=== PATIENT | female | born 1935 | race Caucasian/White ===

== ENCOUNTER 2017-10-16 19:43 | Observation (INO) | payer MEDICARE, OTHER ==
[~2017-10-16] VITALS: Ht 172.7 cm; Wt 98.0 kg
[~2017-10-16 19:43] MED LIST: ADVI200C9 PO; AMLO5TAB96 PO; ATOR20TA42 PO; LASI20TA PO; LEVO125T48 PO; LISI40TA PO; LORA10TA7 PO; OMEP20CA5 PO; PROZ20CA11 PO
[2017-10-16 19:54] VITALS: BP 146/65; PULSE 72; RESP 16; TEMP 98.2; O2SAT 97
[2017-10-16] MEDS ORDERED: SODIUM CHLOR 0.9% 1000 ML INJ 1,000 ML IV ONE (20:15)
[2017-10-16] MEDS ORDERED: PRIL20TA2 PO (20:19)
[2017-10-16] MEDS ORDERED: LIPI10TA PO (20:19)
[2017-10-16] MEDS ORDERED: LEVO125T4 PO (20:19)
[2017-10-16] MEDS ORDERED: APIX5TAB PO (20:19)
[2017-10-16] MEDS ORDERED: AMLO5 PO (20:19)
[2017-10-16] MEDS ORDERED: LISI40TA PO (20:19)
[2017-10-16 20:20] LABS: AUTOMATED NEUTROPHIL # 7.4 TH/MM3 (1.8-7.7); BASOPHIL # 0.1 TH/MM3 (0-0.2); BASOPHIL % 1.2 % (0.0-2.0); EOSINOPHIL # 0.2 TH/MM3 (0-0.4); EOSINOPHIL % 1.7 % (0.0-4.0); HEMATOCRIT 34.9 % (35.0-46.0); LYMPH % 25.5 % (9.0-44.0); LYMPHOCYTE # 2.9 TH/MM3 (1.0-4.8); MEAN CELL VOLUME 76.8 FL (80.0-100.0); MEAN CORPUSCULAR HEMOGLOBIN 24.2 PG (27.0-34.0); MEAN CORPUSCULAR HGB CONC 31.5 % (32.0-36.0); MEAN PLATELET VOLUME 7.2 FL (7.0-11.0); MONO % 7.6 % (0.0-8.0); MONOCYTE # 0.9 TH/MM3 (0-0.9); PLATELET COUNT 369 TH/MM3 (150-450); RED BLOOD COUNT 4.54 MIL/MM3 (4.00-5.30); RED CELL DISTRIBUTION WIDTH 15.5 % (11.6-17.2); WHITE BLOOD COUNT 11.6 TH/MM3 (4.0-11.0)
[2017-10-16 20:23] VITALS: BP_SYST 122; BP_SYST 139; BP_SYST 150; BP_DIAS 66; BP_DIAS 68; BP_DIAS 70; RESP 16
--- NOTE | 2017-10-16 20:25 | RADRPT ---
EXAM DATE/TIME: 10/16/2017 20:11 [facility] COMPARISON: No previous studies available for comparison. INDICATIONS : Syncopal episode. RADIATION DOSE: 34.70 CTDIvol (mGy) MEDICAL HISTORY : Hypertension. SURGICAL HISTORY : None. ENCOUNTER: Initial ACUITY: 1 day PAIN SCALE: 0/10 LOCATION: cranial TECHNIQUE: Multiple contiguous axial images were obtained of the head. Using automated exposure control and adj ustment of the mA and/or kV according to patient size, radiation dose was kept as low as reasonably a chievable to obtain optimal diagnostic quality images. DICOM format image data is available electro nically for review and comparison. FINDINGS: CEREBRUM: The ventricles are normal for age. No evidence of midline shift, mass lesion, hemorrhage or acute in farction. No extra-axial fluid collections are seen. POSTERIOR FOSSA: The cerebellum and brainstem are intact. The 4th ventricle is midline. The cerebellopontine angle i s unremarkable. EXTRACRANIAL: The visualized portion of the orbits is intact. SKULL: The calvaria is intact. No evidence of skull fracture. CONCLUSION: 1. No acute intracranial abnormalities. Truong Archibald MD on October 16, 2017 at 20:22 Board Certified Radiologist. This report was verified electronically.
[2017-10-16 20:36] LABS: PROTHROMBIN TIME - PATIENT 10.1 SEC (9.8-11.6)
[2017-10-16 21:00] VITALS: BP 139/91; PULSE 80; RESP 16; O2SAT 97
[2017-10-16 21:04] LABS: ALBUMIN 3.5 GM/DL (3.4-5.0); ALKALINE PHOSPHATASE 79 U/L (45-117); ALT (GPT) 24 U/L (10-53); AST (GOT) 44 U/L (15-37); BICARBONATE 22.4 MEQ/L (21.0-32.0); BLOOD UREA NITROGEN 20 MG/DL (7-18); CALCIUM 8.3 MG/DL (8.5-10.1); CHLORIDE 104 MEQ/L (98-107); CREATININE 1.17 MG/DL (0.50-1.00); GLOMERULAR FILTRATION RATE 45 ML/MIN (>89); GLUCOSE,RANDOM 105 MG/DL (74-106); LIPASE 63 U/L (73-393); SODIUM (NA) 134 MEQ/L (136-145); TOTAL BILIRUBIN ADULT 0.3 MG/DL (0.2-1.0); TOTAL PROTEIN 7.2 GM/DL (6.4-8.2); TROPONIN I LESS THAN 0.02 NG/ML (0.02-0.05)
--- NOTE | 2017-10-16 21:17 | RADRPT ---
EXAM DATE/TIME: 10/16/2017 20:48 [facility] COMPARISON: No previous studies available for comparison. INDICATIONS : Syncope. Shortness of breath. MEDICAL HISTORY : Hypertension. SURGICAL HISTORY : None. ENCOUNTER: Initial ACUITY: 2 days PAIN SCORE: 0/10 LOCATION: Bilateral chest FINDINGS: A single view of the chest demonstrates the lungs to be symmetrically aerated without evidence of mas s, infiltrate or effusion. Mild dependent atelectasis. Heart size mildly enlarged. CONCLUSION: 1. Minimal dependent atelectasis in the lungs. No effusion or pneumothorax. Truong Archibald MD on October 16, 2017 at 21:13 Board Certified Radiologist. This report was verified electronically.
--- NOTE | 2017-10-16 21:39 | PD ---
HPI Chief Complaint: Syncope/Near-Syncope Time Seen by Provider: 19:46 Travel History International Travel<30 days: No Contact w/Intl Traveler<30days: No Traveled to known affect area: No History of Present Illness HPI 82-year-old female that presents to the ED for evaluation of syncope. Patient had a syncopal episode while sitting. Per patient she has a history of "supposedly A. fib ". Per patient she's actually never been found to have A. fib but she has been worked up for it with negative results. Per patient today she was playing "bridge" with her friends and she was sitting had an episode where she started feeling like she had hot flashes and then she had a syncopal episode. Per bystanders apparently patient was somewhat unresponsive and when ambulance showed up she had an episode where she cannot perked up. Patient was given some fluids and was found to be severely hypotensive and then came back to it. She is now more to baseline but she continues to be dizzy with standing. She states that she feels weak. Per patient she's had worked up for her A. fib recently and had multiple times by Dr. Richards as well as her research and development researcher. Do not be noted. I want she is having. Per ambulance she had episodes of bradycardia whenever she was symptomatic. She does take blood pressure medications and amlodipine. She denies any chest pain or shortness of breath. She denies any urinary or bowel movement issues. Per patient and her doctor told her yesterday to her hemoglobin had dropped to 10.1 and they were concerned that maybe she was bleeding. She denies any changes in her stool or bowel movement. She denies any abdominal pain. She did have an episode of "volatile vomit" when she return to baseline. Given 4 mg of Zofran per EVAC. PFSH Past Medical History Arthritis: Yes Blood Disorders: No Cancer: No Cardiovascular Problems: Yes High Cholesterol: Yes Diabetes: No Endocrine: Yes Gastrointestinal Disorders: Yes GERD: Yes Genitourinary: No Hiatal Hernia: Yes (POSSIBLE) Hypertension: Yes Immune Disorder: No Implanted Vascular Access Dvce: Yes Musculoskeletal: Yes Neurologic: Yes Psychiatric: No Reproductive: No Respiratory: Yes Thyroid Disease: Yes (HYPO) Ulcer: Yes (HX) Tetanus Vaccination: Unknown Influenza Vaccination: Yes Past Surgical History Body Medical Devices: CAMERON EYE LENS Eye Surgery: Yes (CAMERON CATARACT SX ) Oral Surgery: Yes (T&A AGE 20 ) Tonsillectomy: Yes Social History Alcohol Use: Yes (WINE ) Tobacco Use: No (STOPPED 1989) Substance Use: No Allergies-Medications (Allergen,Severity, Reaction): Coded Allergies: hydrochlorothiazide (Unverified Allergy, Unknown, MUSCLE CRAMPING, 10/16/17 ) Uncoded Allergies: ADALAT (Adverse Reaction, Intermediate, Headache, 09/30/10) Reported Meds & Prescriptions Reported Meds & Active Scripts Active Reported Eliquis (Apixaban) 5 Mg Tab 5 Mg PO BID Prilosec (Omeprazole Magnesium) 20 Mg Tab 20 Mg PO DAILY Lisinopril 40 Mg Tab 40 Mg PO DAILY Levothyroxine (Levothyroxine Sodium) 125 Mcg Tab 125 Mcg PO DAILY Lipitor (Atorvastatin Calcium) 10 Mg Tab 10 Mg PO HS Norvasc (Amlodipine Besylate) 5 Mg Tab 5 Mg PO DAILY Review of Systems Except as stated in HPI: all other systems reviewed are Neg Physical Exam Narrative GENERAL: SKIN: Warm and dry. HEAD: Atraumatic. Normocephalic. EYES: Pupils equal and round. No scleral icterus. No injection or drainage. ENT: No nasal bleeding or discharge. Mucous membranes pink and moist. Tongue is midline. No uvula deviation. NECK: Trachea midline. No JVD. CARDIOVASCULAR: Regular rate and rhythm. No murmurs, S3, S4. RESPIRATORY: No accessory muscle use. Clear to auscultation. Breath sounds equal bilaterally. GASTROINTESTINAL: Abdomen soft, non-tender, nondistended. Hepatic and splenic margins not palpable. Rectal exam: The with him and nurse present. Patient has no obvious masses or deformities. No active bleeding. Hemoccult was done and negative. MUSCULOSKELETAL: Extremities without clubbing, cyanosis, or edema. No obvious deformities. Full range of motion of the upper and lower extremities bilaterally. 2+ pulses bilaterally. NEUROLOGICAL: Awake and alert. No obvious cranial nerve deficits. Motor grossly within normal limits. Five out of 5 muscle strength in the arms and legs. Normal speech. PSYCHIATRIC: Appropriate mood and affect; insight and judgment normal. Data Data Last Documented VS Vital Signs Date Time Temp Pulse Resp B/P (MAP) Pulse Ox O2 Delivery O2 Flow Rate FiO2 10/16/17 20:23 65 16 139/66 (90) 70 16 150/70 (96) 79 16 122/68 (86) 10/16/17 19:54 97 Orders Orders Electrocardiogram (10/16/17 19:54) Complete Blood Count With Diff (10/16/17 19:54) Comprehensive Metabolic Panel (10/16/17 19:54) Ckmb (Isoenzyme) Profile (10/16/17 19:54) Troponin I (10/16/17 19:54) B-Type Natriuretic Peptide (10/16/17 19:54) Prothrombin Time / Inr (Pt) (10/16/17 19:54) Act Partial Throm Time (Ptt) (10/16/17 19:54) Lipase (10/16/17 19:54) Urinalysis - C+S If Indicated (10/16/17 19:54) Magnesium (Mg) (10/16/17 19:54) Thyroid Stimulating Hormone (10/16/17 19:54) Chest, Single Ap (10/16/17 19:54) Ct Brain W/O Iv Contrast(Rout) (10/16/17 19:54) Iv Access Insert/Monitor (10/16/17 19:54) Ecg Monitoring (10/16/17 19:54) Oximetry (10/16/17 19:54) Orthostatic Vital Signs (10/16/17 19:54) Alcohol (Ethanol) (10/16/17 19:54) Sodium Chlor 0.9% 1000 Ml Inj (Ns 1000 M (10/16/17 20:15) CKMB (10/16/17 20:00) CKMB% (10/16/17 20:00) Labs Laboratory Tests Test 10/16/17 20:00 White Blood Count 11.6 TH/MM3 Red Blood Count 4.54 MIL/MM3 Hemoglobin 11.0 GM/DL Hematocrit 34.9 % Mean Corpuscular Volume 76.8 FL Mean Corpuscular Hemoglobin 24.2 PG Mean Corpuscular Hemoglobin Concent 31.5 % Red Cell Distribution Width 15.5 % Platelet Count 369 TH/MM3 Mean Platelet Volume 7.2 FL Neutrophils (%) (Auto) 64.0 % Lymphocytes (%) (Auto) 25.5 % Monocytes (%) (Auto) 7.6 % Eosinophils (%) (Auto) 1.7 % Basophils (%) (Auto) 1.2 % Neutrophils # (Auto) 7.4 TH/MM3 Lymphocytes # (Auto) 2.9 TH/MM3 Monocytes # (Auto) 0.9 TH/MM3 Eosinophils # (Auto) 0.2 TH/MM3 Basophils # (Auto) 0.1 TH/MM3 CBC Comment DIFF FINAL Differential Comment Prothrombin Time 10.1 SEC Prothromb Time International Ratio 1.0 RATIO Activated Partial Thromboplast Time 20.0 SEC Blood Urea Nitrogen 20 MG/DL Creatinine 1.17 MG/DL Random Glucose 105 MG/DL Total Protein 7.2 GM/DL Albumin 3.5 GM/DL Calcium Level 8.3 MG/DL Magnesium Level 2.0 MG/DL Alkaline Phosphatase 79 U/L Aspartate Amino Transf (AST/SGOT) 44 U/L Alanine Aminotransferase (ALT/SGPT) 24 U/L Total Bilirubin 0.3 MG/DL Sodium Level 134 MEQ/L Potassium Level 5.5 MEQ/L Chloride Level 104 MEQ/L Carbon Dioxide Level 22.4 MEQ/L Anion Gap 8 MEQ/L Estimat Glomerular Filtration Rate 45 ML/MIN Total Creatine Kinase 318 U/L Creatine Kinase MB 2.9 NG/ML Creatine Kinase MB % 0.9 % Troponin I LESS THAN 0.02 NG/ML B-Type Natriuretic Peptide 23 PG/ML Lipase 63 U/L Thyroid Stimulating Hormone 3rd Gen 1.000 uIU/ML Ethyl Alcohol Level LESS THAN 3 MG/DL MDM Medical Decision Making Medical Screen Exam Complete: Yes Emergency Medical Condition: Yes Medical Record Reviewed: Yes Interpretation(s) EKG shows sinus rhythm with no sign of acute ischemia remitted and attending. CBC & BMP Diagram 10/16/17 20:00 Total Protein 7.2, Albumin 3.5, Calcium Level 8.3 L, Magnesium Level 2.0, Alkaline Phosphatase 79, Aspartate Amino Transf (AST/SGOT) 44 H, Alanine Aminotransferase (ALT/SGPT) 24, Total Bilirubin 0.3 troponin and CKMB negative Last Impressions Head CT 10/16/171953 Signed Impressions: Service Date/Time: Monday, October 16, 2017 20:11 - CONCLUSION: 1. No acute intracranial abnormalities. Truong Archibald MD Chest X-Ray 10/16/171953 Signed Impressions: Service Date/Time: Monday, October 16, 2017 20:48 - CONCLUSION: 1. Minimal dependent atelectasis in the lungs. No effusion or pneumothorax. Truong Archibald MD Differential Diagnosis Syncope versus orthostatic hypotension versus bradycardia versus ACS equivalent versus presyncope versus nausea versus dizziness Narrative Course 82-year-old female that presents to the ED for evaluation of syncope. Patient was properly examined and was found to have signs and symptoms consistent appears to be syncope. Unclear. This time the patient does appear to have orthostatic hypotension and bradycardia. Labs and imaging were ordered. Labs and imaging were essentially unremarkable other than for orthostatic hypotension and hyperkalemia and possible acute kidney injury. Patient was noted to be bradycardic with a versus symptomatic. She does go down to the 50s and 60s but no obvious disease otherwise. Patient has been found to be hypotensive as well and initially she was in the 100s and 90s but she was given fluids and they came back up. I did do a Hemoccult on her which was negative as she was concerned she might have some bleeding. I discussed the case with my attending and do recommend admission for further evaluation of this. Patient agrees with this. Case was discussed with Dr. Sepulveda who agreed to admission. Diagnosis Primary Impression: Syncope Qualified Codes: R55 - Syncope and collapse Additional Impressions: Orthostatic hypotension Bradycardia Admitting Information Admitting Physician Requests: Observation Heath Carlson Oct 16, 2017 21:39
--- NOTE | 2017-10-16 21:44 | HHI.HP ---
[facility] Huong Laird MD Admission Diagnosis syncope, orthostatic hypotension, bradycardia with syncope Diagnoses: (1) Syncope Diagnosis: Principal (2) Orthostatic hypotension Diagnosis: Principal (3) Hyperkalemia Diagnosis: Principal (4) Renal insufficiency Diagnosis: Principal (5) Leukocytosis Diagnosis: Principal (6) A-fib Diagnosis: Principal Travel History International Travel<30 Days: No Contact w/Intl Traveler <30 Da: No Traveled to Known Affected Are: No History of Present Illness This is an 82-year-old female with a PMH of HTN, A. fib on Eliquis and Hypothyroidism who was brought to the ER after syncopal event. Per patient she was at a republican in the club house of her condo today, states she had been "standing in the corner for a while" when she suddenly felt hot. Friends at bedside report pt w/ LOC for approx 1 min. No witnessed seizure activity noted. Pt reports similar episode approx 6 months ago, states she was playing bridge at that time and had sudden syncope while sitting. Previous work up has been negative per patient, seen by Bag Machine Set Up Operator, Dr. Matthew and PCP. No recurrent syncope until now. Does note worsening anemia since starting Eliquis , states PCP called her w/ results of Hgb 10.1. Denies any active bleeding. States she had one episode of dark stool approx 2 wks ago, no recurrence. On arrival, BP 146/65, HR 72, O2 sat 97% on RA, Afebrile. While in ER, patient noted to have episodes of transient bradycardia. +Orthostatic Hypotension. WBC 11.6. Hemoglobin 11.0, previously 14.1 08/10/12. K+ 5.5. Creatinine 1.17 , previously 1.01 on 08/10/12. Troponin negative. INR 1.0. UA pending. CXR with minimal atelectasis. CT Head with no acute findings. Review of Systems Except as stated in HPI: all other systems reviewed are Neg ROS: 14 point review of systems otherwise negative. Past Family Social History Past Medical History PMH: HTN, A. fib on Eliquis and Hypothyroidism Past Surgical History PAST SURGICAL HISTORY: Cataract Surgery, Tonsillectomy Allergies: Coded Allergies: hydrochlorothiazide (Unverified Allergy, Unknown, MUSCLE CRAMPING, 10/16/17 ) Uncoded Allergies: ADALAT (Adverse Reaction, Intermediate, Headache, 09/30/10) Family History PAST FAMILY HISTORY: Reviewed. No h/o DM or CAD Social History PAST SOCIAL HISTORY: Occasional alcohol. Negative for tobacco or drugs. Physical Exam Vital Signs Vital Signs Date Time Temp Pulse Resp B/P (MAP) Pulse Ox O2 Delivery O2 Flow Rate FiO2 10/16/17 20:23 65 16 139/66 (90) 70 16 150/70 (96) 79 16 122/68 (86) 10/16/17 19:54 72 16 146/65 (92) 97 Physical Exam PE: GENERAL: Pleasant elderly white female in no acute distress. Friends at bedside HEENT: PERRLA, EOMI. No scleral icterus or conjunctival pallor. No lid lag or facial droop. CARDIOVASCULAR: Regular rate and rhythm. No obvious murmurs to auscultation. No chest tenderness to palpation. RESPIRATORY: No obvious rhonchi or wheezing. Clear to auscultation. Breath sounds equal bilaterally. GASTROINTESTINAL: Abdomen soft, non-tender, nondistended. BS normal. MUSCULOSKELETAL: Extremities without clubbing, cyanosis, or edema. No obvious deformities. NEUROLOGICAL: Awake, alert and oriented x4. No focal neurologic deficits. Moving both upper and lower extremities spontaneously. Laboratory Laboratory Tests Test 10/16/17 20:00 White Blood Count 11.6 Red Blood Count 4.54 Hemoglobin 11.0 Hematocrit 34.9 Mean Corpuscular Volume 76.8 Mean Corpuscular Hemoglobin 24.2 Mean Corpuscular Hemoglobin Concent 31.5 Red Cell Distribution Width 15.5 Platelet Count 369 Mean Platelet Volume 7.2 Neutrophils (%) (Auto) 64.0 Lymphocytes (%) (Auto) 25.5 Monocytes (%) (Auto) 7.6 Eosinophils (%) (Auto) 1.7 Basophils (%) (Auto) 1.2 Neutrophils # (Auto) 7.4 Lymphocytes # (Auto) 2.9 Monocytes # (Auto) 0.9 Eosinophils # (Auto) 0.2 Basophils # (Auto) 0.1 CBC Comment DIFF FINAL Differential Comment Prothrombin Time 10.1 Prothromb Time International Ratio 1.0 Activated Partial Thromboplast Time 20.0 Blood Urea Nitrogen 20 Creatinine 1.17 Random Glucose 105 Total Protein 7.2 Albumin 3.5 Calcium Level 8.3 Magnesium Level 2.0 Alkaline Phosphatase 79 Aspartate Amino Transf (AST/SGOT) 44 Alanine Aminotransferase (ALT/SGPT) 24 Total Bilirubin 0.3 Sodium Level 134 Potassium Level 5.5 Chloride Level 104 Carbon Dioxide Level 22.4 Anion Gap 8 Estimat Glomerular Filtration Rate 45 Total Creatine Kinase 318 Creatine Kinase MB 2.9 Creatine Kinase MB % 0.9 Troponin I LESS THAN 0.02 B-Type Natriuretic Peptide 23 Lipase 63 Thyroid Stimulating Hormone 3rd Gen 1.000 Ethyl Alcohol Level LESS THAN 3 Result Diagram: 10/16/17199910/16/171999 Danterinpk VTE Risk Assessment Danterinpk VTE Risk Assessment: No/Low Risk (score <= 1) Danterini Risk Assessment Model Point Value = 1 Point Value = 2 Point Value = 3 Point Value = 5 Age 41-60 Minor surgery BMI > 25 kg/m2 Swollen legs Varicose veins or History of unexplained or recurrent spontaneous Oral contraceptives or hormone replacement Sepsis (< 1 month) Serious lung disease, including pneumonia (< 1 month) Abnormal pulmonary function Acute myocardial infarction Congestive heart failure (< 1 month) History of inflammatory bowel disease Medical patient at bed rest Age 61-74 Arthroscopic surgery Major open surgery (> 45 min) Laparoscopic surgery (> 45 min) Malignancy Confined to bed (> 72 hours) Immobilizing plaster cast Central venous access Age >= 75 History of VTE Family history of VTE Factor V Leiden Prothrombin [id number] Lupus anticoagulant Anticardiolipin antibodies Elevated serum homocysteine Heparin-induced thrombocytopenia Other congenital or acquired thrombophilia Stroke (< 1 month) Elective arthroplasty Hip, pelvis, or leg fracture Acute spinal cord injury (< 1 month) Prophylaxis Regimen Total Risk Factor Score Risk Level Prophylaxis Regimen 0-1 Low Early ambulation 2 Moderate Order ONE of the following: *Sequential Compression Device (SCD) *Heparin 5000 units SQ BID 3-4 Higher Order ONE of the following medications: *Heparin 5000 units SQ TID *Enoxaparin/Lovenox 40 mg SQ daily (WT < 150 kg, CrCl > 30 mL/min) *Enoxaparin/Lovenox 30 mg SQ daily (WT < 150 kg, CrCl > 10-29 mL/min) *Enoxaparin/Lovenox 30 mg SQ BID (WT < 150 kg, CrCl > 30 mL/min) AND/OR *Sequential Compression Device (SCD) 5 or more Highest Order ONE of the following medications: *Heparin 5000 units SQ TID (Preferred with Epidurals) *Enoxaparin/Lovenox 40 mg SQ daily (WT < 150 kg, CrCl > 30 mL/min) *Enoxaparin/Lovenox 30 mg SQ daily (WT < 150 kg, CrCl > 10-29 mL/min) *Enoxaparin/Lovenox 30 mg SQ BID (WT < 150 kg, CrCl > 30 mL/min) AND *Sequential Compression Device (SCD) Assessment and Plan Problem List: (1) Syncope ICD Code: R55 - Syncope and collapse Status: Acute (2) Orthostatic hypotension ICD Code: I95.1 - Orthostatic hypotension Status: Acute (3) Hyperkalemia ICD Code: E87.5 - Hyperkalemia (4) Leukocytosis ICD Code: D72.829 - Elevated white blood cell count, unspecified (5) Renal insufficiency ICD Code: N28.9 - Disorder of kidney and ureter, unspecified (6) A-fib ICD Code: I48.91 - Unspecified atrial fibrillation Assessment and Plan A/P: 1. Syncope: acute syncopal event while standing, h/o similar symptoms approx 6 months ago. Admit to CDU, place on telemetry to eval for possible arrhythmia , IVF for hydration. CT Head w/ no acute findings, images reviewed by me. Check Echo to eval for valvular abnormality/cardiomyopathy. Initial trop negative, check serial cardiac enzymes to eval for underlying ischemia. Follows w/ Dr. Matthew, will consult for further evaluation/work up. 2. Orthostatic Hypotension: +orthostatic vital signs in ER, IVF for hydration. Monitor BP closely, TEDs bilaterally. 3. Hyperkalemia: K+ 5.5, hemolysis noted, will repeat labs to eval for hyperkalemia, treat as needed. 4. Leukocytosis: WBC 11.1, afebrile, no obvious infection. CXR w/ no acute findings, images reviewed by me. Check U/a to eval for UTI. Repeat labs in am. 5. Renal Insufficiency: Acute on Chronic. Creatinine 1.17, previously 1.01 on 08/10/12. Check U/a as above, IVF for hydration, repeat labs in am. 6. A-fib: Chronic. On Eliquis. Monitor Hgb/Hct in light of anemia. No active bleeding noted. 7. DVT Prophylaxis: Eliquis 8. Social work for d/c planning as needed. 9. Labs/records/imaging reviewed by me, case discussed at length w/ ER physician. Problem Qualifiers (1) Syncope: Qualified Codes: R55 - Syncope and collapse Mercedes Arambula MD Oct 16, 2017 21:44
[2017-10-16] MEDS ORDERED: SODIUM CHLORIDE 0.9% FLUSH 10 ML FLUSH IV FLUSH PRN (21:45)
[2017-10-16] MEDS ORDERED: MAGNESIUM HYDROXIDE SUSP 30 ML CUP PO PRN (21:45)
[2017-10-16] MEDS ORDERED: BISACODYL 10 MG SUPP RECTAL PRN (21:45)
[2017-10-16] MEDS ORDERED: LACTULOSE SYRUP 20 GM/30 ML CUP PO PRN (21:45)
[2017-10-16] MEDS ORDERED: MORPHINE SULFATE 2 MG/ML INJ IV PUSH PRN (21:45)
[2017-10-16] MEDS ORDERED: ONDANSETRON HCL 4 MG/2 ML VIAL IVP PRN (21:45)
[2017-10-16] MEDS ORDERED: ACETAMINOPHEN 325 MG TAB PO PRN (21:45)
[2017-10-16] MEDS ORDERED: SENNOSIDES 8.6 MG TAB PO PRN (21:45)
[2017-10-16] MEDS ORDERED: ACETAMINOPHEN/HYDROcodone 325 MG/5 MG TAB PO PRN (21:45)
[2017-10-16 22:00] VITALS: BP 123/60; PULSE 71; RESP 16; O2SAT 96
[2017-10-16] MEDS: SODIUM CHLOR 0.9% 1000 ML INJ 1,000 ML IV SCH ×2 (22:00→23:30)
[2017-10-16 23:00] VITALS: BP 138/63; PULSE 76; RESP 16; TEMP 97.5; O2SAT 98
[2017-10-16 23:03] LABS: BACTERIA, URINE OCC /hpf; BILIRUBIN, URINE NEG (NEG); BLOOD, URINE TRACE (NEG); GLUCOSE,URINE NEG (NEG); KETONE, URINE NEG (NEG); NITRITE,URINE NEG (NEG); PH, URINE 5.5 (5.0-8.5); SQUAMOUS EPITHELIAL CELL URINE <1 /hpf (0-5); TRANSITIONAL EPI CELLS, URINE <1 /hpf; URINE COLOR LIGHT-YELLOW (YELLW/STRAW); URINE LEUKOCYTE ESTERASE TRACE (NEG)
[2017-10-17] VITALS (9 sets, daily range): BP systolic 124–151; BP diastolic 56–85; PULSE 64–78; RESP 16–18; TEMP 98; O2SAT 94–96
[2017-10-17 02:40] LABS: AUTOMATED NEUTROPHIL # 7.7 TH/MM3 (1.8-7.7); BASOPHIL # 0.1 TH/MM3 (0-0.2); BASOPHIL % 0.8 % (0.0-2.0); EOSINOPHIL % 0.3 % (0.0-4.0); HEMATOCRIT 30.9 % (35.0-46.0); HEMOGLOBIN 9.8 GM/DL (11.6-15.3); LYMPH % 24.2 % (9.0-44.0); LYMPHOCYTE # 2.8 TH/MM3 (1.0-4.8); MEAN CELL VOLUME 75.8 FL (80.0-100.0); MEAN CORPUSCULAR HGB CONC 31.6 % (32.0-36.0); MONO % 6.9 % (0.0-8.0); MONOCYTE # 0.8 TH/MM3 (0-0.9); NEUT % 67.8 % (16.0-70.0); PLATELET COUNT 383 TH/MM3 (150-450); RED BLOOD COUNT 4.07 MIL/MM3 (4.00-5.30); RED CELL DISTRIBUTION WIDTH 15.5 % (11.6-17.2); WHITE BLOOD COUNT 11.4 TH/MM3 (4.0-11.0)
[2017-10-17 03:35] LABS: ALBUMIN 3.1 GM/DL (3.4-5.0); ALKALINE PHOSPHATASE 71 U/L (45-117); ALT (GPT) 18 U/L (10-53); AST (GOT) 14 U/L (15-37); BICARBONATE 27.8 MEQ/L (21.0-32.0); BLOOD UREA NITROGEN 18 MG/DL (7-18); CHLORIDE 107 MEQ/L (98-107); CREATININE 0.89 MG/DL (0.50-1.00); GLOMERULAR FILTRATION RATE 61 ML/MIN (>89); GLUCOSE,RANDOM 109 MG/DL (74-106); SODIUM (NA) 139 MEQ/L (136-145); TOTAL BILIRUBIN ADULT 0.3 MG/DL (0.2-1.0); TOTAL PROTEIN 6.2 GM/DL (6.4-8.2); TROPONIN I LESS THAN 0.02 NG/ML (0.02-0.05)
[2017-10-17] MEDS ORDERED: LEVOTHYROXINE SODIUM 125 MCG TAB PO SCH (06:00)
[2017-10-17] MEDS ORDERED: DOCUSATE SODIUM 50 MG/SENNA 8.6 MG TAB PO SCH (09:00)
[2017-10-17] MEDS ORDERED: amLODIPine BESYLATE 5 MG TAB PO SCH (09:00)
[2017-10-17] MEDS ORDERED: PANTOPRAZOLE SOD 20 MG DELAYED RELEASE TAB PO SCH (09:00)
[2017-10-17] MEDS ORDERED: SODIUM CHLORIDE 0.9% FLUSH 10 ML FLUSH IV FLUSH SCH (09:00)
[2017-10-17] MEDS ORDERED: APIXABAN 5 MG TABLET PO SCH (09:00)
[2017-10-17] MEDS: SODIUM CHLOR 0.9% 1000 ML INJ 1,000 ML IV SCH (09:38)
--- NOTE | 2017-10-17 11:07 | HHI.PR ---
Subjective Remarks Follow-up syncope. Patient feels much better denies gross bleeding. Denies abdominal pain. She wants to go home. Discussed with RN, and guaiac-negative can be discharged home. She is improved hemodynamically on IV hydration Objective Vitals Vital Signs Date Time Temp Pulse Resp B/P (MAP) Pulse Ox O2 Delivery O2 Flow Rate FiO2 10/17/17 07:29 98.0 68 16 129/63 (85) 94 10/17/17 04:25 98.0 67 16 124/56 (78) 96 10/17/17 04:00 72 10/17/17 00:29 78 10/16/17 23:00 97.5 76 16 138/63 (88) 98 10/16/17 22:35 10/16/17 22:00 71 16 123/60 (81) 96 Room Air 10/16/17 21:00 80 16 139/91 (107) 97 Room Air 10/16/17 20:23 65 16 139/66 (90) 70 16 150/70 (96) 79 16 122/68 (86) 10/16/17 19:54 98.2 72 16 146/65 (92) 97 I/O 10/16/17 10/16/17 10/16/17 10/17/17 10/17/17 10/17/17 07:00 15:00 23:00 07:00 15:00 23:00 Intake Total 1260 ml Balance 1260 ml Intake Oral 260 ml IV Total 1000 ml # Voids 2 Result Diagram: 10/17/1722210/17/17222 Imaging Last Impressions Head CT 10/16/171953 Signed Impressions: Service Date/Time: Monday, October 16, 2017 20:11 - CONCLUSION: 1. No acute intracranial abnormalities. Truong Archibald MD Chest X-Ray 10/16/171953 Signed Impressions: Service Date/Time: Monday, October 16, 2017 20:48 - CONCLUSION: 1. Minimal dependent atelectasis in the lungs. No effusion or pneumothorax. Truong Archibald MD Objective Remarks GENERAL: Pleasant elderly white female in no acute distress. Friends at bedside HEENT: PERRLA, EOMI. No scleral icterus or conjunctival pallor. No lid lag or facial droop. CARDIOVASCULAR: Regular rate and rhythm. No obvious murmurs to auscultation. No chest tenderness to palpation. RESPIRATORY: No obvious rhonchi or wheezing. Clear to auscultation. Breath sounds equal bilaterally. GASTROINTESTINAL: Abdomen soft, non-tender, nondistended. BS normal. MUSCULOSKELETAL: Extremities without clubbing, cyanosis, or edema. No obvious deformities. NEUROLOGICAL: Awake, alert and oriented x4. No focal neurologic deficits. Moving both upper and lower extremities spontaneously. Procedures none A/P Problem List: (1) Syncope ICD Code: R55 - Syncope and collapse Status: Acute (2) Orthostatic hypotension ICD Code: I95.1 - Orthostatic hypotension Status: Acute (3) Hyperkalemia ICD Code: E87.5 - Hyperkalemia (4) Leukocytosis ICD Code: D72.829 - Elevated white blood cell count, unspecified (5) Renal insufficiency ICD Code: N28.9 - Disorder of kidney and ureter, unspecified (6) A-fib ICD Code: I48.91 - Unspecified atrial fibrillation Assessment and Plan 1. Syncope: Likely secondary to dehydration. Workup unremarkable pending echocardiogram. Continue telemetry. Cardiology recommends loop recorder outpatient. PT eval, fall precautions 2. Orthostatic Hypotension secondary to dehydration. Improved with IV hydration. Continue to hold lisinopril. 3. Hyperkalemia: K+ 5.5, hemolysis noted, repeat labs improved 4. Leukocytosis likely reactive. Improving 5. Chronic kidney disease stage II-III. Improving creatinine on IV hydration 6. A-fib: Chronic. On Eliquis. Monitor Hgb/Hct in light of anemia. No active bleeding noted. 7. Anemia secondary to dilution. No acute blood loss. Guaiac negative. Outpatient follow-up DVT Prophylaxis: Eliquis Discharge Planning Discharge patient to home if echocardiogram unremarkable Condition on discharge: Improved Regular Diet as tolerated Ad Stephanie activity no driving Rx written: None hold lisinopril for now Follow-up with primary care physician with repeat CBC Problem Qualifiers (1) Syncope: Qualified Codes: R55 - Syncope and collapse Charlie Mercado MD Oct 17, 2017 11:07
--- NOTE | 2017-10-17 14:10 | EKG ---
Date Performed: 10/16/2017 Time Performed: 19:56:05 PTAGE: 82 years EKG: Sinus rhythm WITH SINUS ARRHYTHMIA POSSIBLE RIGHT VENTRICULAR CONDUCTION DELAY BORDERLINE ECG PREVIOUS TRACING : 08/10/2012 12.25 Right bundle branch block is new since prior tracing. DOCTOR: Randy Corral Interpretating Date/Time 10/17/2017 14:09:09
--- NOTE | 2017-10-17 15:05 | HHI.DCPOC ---
Discharge Care Plan Diagnosis: (1) Syncope Goals to Promote Your Health * To prevent worsening of your condition and complications * To maintain your health at the optimal level Directions to Meet Your Goals Take your medications as prescribed Follow your dietary instruction Follow activity as directed Keep your appointments as scheduled Take your immunizations and boosters as scheduled If your symptoms worsen call your PCP, if no PCP go to Urgent Care Center or Emergency Room Smoking is Dangerous to Your Health. Avoid second hand smoke Call the 24-hour hour crisis hotline for domestic abuse at Iris Connor PA-C Oct 17, 2017 3:04 pm
--- NOTE | 2017-10-17 16:18 | ECHRPT ---
Indication: CARDIOMYOPATHY CONCLUSIONS Normal left ventricular size. Wall thickness is normal. The left ventricular systolic function is grossly normal on limited imaging. The right atrial size is [id number] dilated. No atrial level shunt is demonstrated by color flow Doppler interrogation. The aortic root and proximal ascending aorta are not well visualized. Mild mitral valve regurgitation. There is trace tricuspid valve regurgitation. The estimated pulmonary arterial pressure is 44.1 mmHg. A prominent epicardial fat pad is present. BP: 124 / 56 HR: 67 Rhythm: Sinus MEASUREMENTS (Male / Female) Normal Values Technical Quality:Fair 2D ECHO LV Diastolic Diameter PLAX 4.6 cm 4.2 - 5.9 / 3.9 - 5.3 cm LV Systolic Diameter PLAX 3.0 cm IVS Diastolic Thickness 1.0 cm 0.6 - 1.0 / 0.6 - 0.9 cm LVPW Diastolic Thickness 0.9 cm 0.6 - 1.0 / 0.6 - 0.9 cm LV Relative Wall Thickness 0.4 RV Internal Dim ED PLAX 3.2 cm LVOT Diameter 2.0 cm Aortic Root Diameter 3.2 cm LA Systolic Diameter LX 3.4 cm 3.0 - 4.0 / 2.7 - 3.8 cm M-MODE AV Cusp Separation MM 2.1 cm DOPPLER AV Peak Velocity 145.0 cm/s AV Peak Gradient 8.4 mmHg AV Mean Gradient 5.0 mmHg AV Velocity Time Integral 33.4 cm LVOT Peak Velocity 113.0 cm/s LVOT Peak Gradient 5.1 mmHg LVOT Velocity Time Integral 23.2 cm AV Area Cont Eq vti 2.2 cm AV Area Cont Eq pk 2.4 cm Mitral E Point Velocity 97.2 cm/s Mitral A Point Velocity 113.0 cm/s Mitral E to A Ratio 0.9 LV E' Lateral Velocity 9.6 cm/s Mitral E to LV E' Lateral Ratio 10.2 LV E' Septal Velocity 5.9 cm/s Mitral E to LV E' Septal Ratio 16.3 TR Peak Velocity 292.0 cm/s TR Peak Gradient 34.1 mmHg Right Atrial Pressure 10.0 mmHg Pulmonary Artery Systolic Pressu 44.1 mmHg Right Ventricular Systolic Press 44.1 mmHg PV Peak Velocity 76.7 cm/s PV Peak Gradient 2.4 mmHg FINDINGS LEFT VENTRICLE Normal left ventricular size. Wall thickness is normal. The left ventricular systolic function is grossly normal on limited imaging. RIGHT VENTRICLE Normal right ventricular size and systolic function. LEFT ATRIUM The left atrial size is normal. RIGHT ATRIUM The right atrial size is [id number] dilated. ATRIAL SEPTUM No atrial level shunt is demonstrated by color flow Doppler interrogation. AORTA The aortic root and proximal ascending aorta are not well visualized. MITRAL VALVE Mild mitral valve regurgitation. AORTIC VALVE Trileaflet aortic valve. No aortic valve stenosis or regurgitation. TRICUSPID VALVE There is trace tricuspid valve regurgitation. The estimated pulmonary arterial pressure is 44.1 mmHg. PULMONARY VALVE No pulmonary valve regurgitation or stenosis. VESSELS The inferior vena cava was not well visualized. PERICARDIUM A prominent epicardial fat pad is present. Booker Slaughter MD, FACC (Electronically Signed) Final Date:17 October 2017 16:17
--- NOTE | 2017-10-17 18:54 | MB ---
cc: MICK AMAYA DO DATE OF CONSULTATION: 10/17/2017. REASON FOR CONSULTATION: Syncope. HISTORY OF PRESENT ILLNESS: Char Anderson is a pleasant 82-year-old female who sees my partner, Dr. Matthew, in the office and presented to [facility] Emergency Room on October 16, 2017 due to a syncopal event. The patient was at a constitution party in the clubhouse of her condo today and had one glass of wine and was just starting into her second. She was standing in the corner for a while when she started feeling hot but she thought it was because there were so many people in the room. She felt like she was going to faint if she did not sit down. No chest pain or shortness of breath or palpitations during the episode. She sat down on a chair and at that time it appeared she kind of dropped her head. Her friends lay her down on the ground and supposedly she was unconscious at that time for about a minute. She vomited once around that time and then came-to. There was no postictal stage afterwards. On seeing her, she is currently hemodynamically stable without chest pain or shortness of breath. She had another episode where she was playing bridge and was sitting there and did not have a true syncopal episode but felt like she lost some time and was not sure what was going on. She was unsure if she was confused or had just blanked out. Apparently Dr. Matthew had recommended a loop recorder after this but she had held off. Lastly, she is on Eliquis and she believes her hemoglobins are creeping down slowly. She had a dark stool around two weeks ago but it was not tarry black. PAST MEDICAL HISTORY: 1. Hypertension. 2. Atrial fibrillation. 3. Hypothyroidism. PAST SURGICAL HISTORY: 1. Cataract surgery. 2. Tonsillectomy. ALLERGIES: 1. Adalat. 2. Hydrochlorothiazide. MEDICATIONS: 1. Eliquis 5 milligrams twice a day. 2. Lipitor 10 milligrams every night. 3. Norvasc 5 milligrams daily. 4. Lisinopril 40 milligrams daily. 5. Prilosec 20 milligrams daily. 6. Synthroid 125 micrograms daily. FAMILY HISTORY: Denies premature coronary artery disease or sudden cardiac within the family. SOCIAL HISTORY: The patient occasionally drinks alcohol. Denies tobacco or drugs. REVIEW OF SYSTEMS: Fourteen systems were reviewed including osteopathic with pertinent positives and negatives as above; otherwise negative. PHYSICAL EXAMINATION: VITAL SIGNS: Temperature 98.0, heart rate 68, blood pressure 135/60, respirations 18, pulse ox 96% on room air. GENERAL: In general, the patient appears well and in no acute distress, alert, awake and oriented x3. HEAD, EYES, EARS, NOSE, THROAT: Extraocular muscles intact. Mucous membranes moist. NECK: Supple. No JVD at 45 degrees. No carotid bruits heard bilaterally. Carotid upstroke is brisk in nature. HEART: Regular rate and rhythm. Positive first and second heart sounds with no noted murmurs, gallops or rubs. LUNGS: Clear to auscultation bilaterally. No wheezes, rales or rhonchi. ABDOMEN: The abdomen is soft, nontender and nondistended. No organomegaly noted. EXTREMITIES: No clubbing, cyanosis or edema. Femoral and distal pulses are intact bilaterally. SKIN: Warm, dry and intact. OSTEOPATHIC: Osteopathically, no kyphoscoliosis, lordosis or paraspinal tender points. LAB WORK: Hemoglobin 9.8, hematocrit 30.9, platelet count 383,000. Troponin negative x3. Potassium 4.5. BUN 18, creatinine 0.89. EKGS: Electrocardiogram (October 16, 2017 at 1956): Sinus rhythm with sinus arrhythmia, possible incomplete right bundle branch block. IMPRESSION: 1. Syncope. 2. Orthostatic hypotension. 3. Renal insufficiency with dehydration. 4. Atrial fibrillation 5. Anemia. RECOMMENDATIONS: 1. Ms. Edwards had a syncopal episode which may be due to multiple things including dehydration, orthostatic hypotension as well as blood pooling while being on her feet for some time and including vasodilatation secondary to alcohol. 2. She has since been resuscitated with fluids and is feeling better overall. 3. She did have orthostatic hypotension by vitals as symptoms on arrival to the emergency room. 4. She will continue anemia workup outpatient. Hemoccult of her stool was negative for hemoglobin. 5. We will check a 2-D echo to look at her overall left ventricular function, cardiac structure and possible valvulopathies. 6. If echo is okay, the patient can be discharged home for followup with Dr. Matthew and consideration of a loop placement for rhythm analysis. Thank you for allowing me to see Char Goodson. If there are any questions, please do not hesitate to call. Mick Amaya DO WILLIE/JCC /3:52 PM /6:34 PM
[2017-10-17] MEDS ORDERED: ATORVASTATIN 10 MG TAB PO SCH (21:00)
== END 2017-10-17 19:06 | disposition home or self-care (01) ==
LOC: NEPE 19:43 → NEDA 21:42 → NEPHCDU 22:43
PROVIDERS: ADMIT Internal Medicine; ATTEND Internal Medicine
DX: I95.1 Orthostatic hypotension (principal); R00.1 Bradycardia, unspecified; E87.5 Hyperkalemia; D72.829 Elevated white blood cell count, unspecified; I48.2 Chronic atrial fibrillation; N18.3 Chronic kidney disease, stage 3 (moderate); I12.9 Hypertensive chronic kidney disease with stage 1 through stage 4 chronic kidney disease, or unspecified chronic kidney disease; E03.9 Hypothyroidism, unspecified; Z79.01 Long term (current) use of anticoagulants; D64.9 Anemia, unspecified; J98.11 Atelectasis; R11.10 Vomiting, unspecified; E86.0 Dehydration; K21.9 Gastro-esophageal reflux disease without esophagitis; M19.90 Unspecified osteoarthritis, unspecified site; R06.02 Shortness of breath; Z79.899 Other long term (current) drug therapy
CPT/HCPCS: 70450; 71045; 80053; 80307; 81001; 82272; 82550; 82552; 83690; 83735; 83880; 84443; 84484; 85025; 85610; 85730; 93005; 93306; 96360; 96361; 97162; 99285; G0378; G8987; G8988; J7030

== ENCOUNTER → 2017-10-19 | Outpatient (CLI) | payer MEDICARE, OTHER ==
[~2017-10-19] MED LIST changes: -ADVI200C9 PO; +AMLO5 PO; -AMLO5TAB96 PO; +APIX5TAB PO; -ATOR20TA42 PO; -LASI20TA PO; +LEVO125T4 PO; -LEVO125T48 PO; +LIPI10TA PO; -LORA10TA7 PO; -OMEP20CA5 PO; +PRIL20TA2 PO; -PROZ20CA11 PO
[2017-10-19 09:54] LABS: AUTOMATED NEUTROPHIL # 6.6 TH/MM3 (1.8-7.7); BASOPHIL # 0.1 TH/MM3 (0-0.2); BASOPHIL % 1.1 % (0.0-2.0); EOSINOPHIL # 0.4 TH/MM3 (0-0.4); EOSINOPHIL % 3.5 % (0.0-4.0); HEMATOCRIT 34.9 % (35.0-46.0); LYMPH % 23.6 % (9.0-44.0); LYMPHOCYTE # 2.4 TH/MM3 (1.0-4.8); MEAN CORPUSCULAR HGB CONC 31.6 % (32.0-36.0); MEAN PLATELET VOLUME 7.3 FL (7.0-11.0); MONO % 7.9 % (0.0-8.0); MONOCYTE # 0.8 TH/MM3 (0-0.9); NEUT % 63.9 % (16.0-70.0); PLATELET COUNT 439 TH/MM3 (150-450); RED CELL DISTRIBUTION WIDTH 15.4 % (11.6-17.2); WHITE BLOOD COUNT 10.3 TH/MM3 (4.0-11.0)
== END ==
LOC: PLAB 08:18
PROVIDERS: ATTEND Physician Assistant
DX: D64.9 Anemia, unspecified (principal)
CPT/HCPCS: 36415; 85025